=== PATIENT | female | born 1980 | race Caucasian/White ===

== ENCOUNTER 2017-05-28 13:48 | Emergency (ER) | payer OTHER ==
[2017-05-28] MEDS ORDERED: diphenhydrAMINE 50 MG/ML SDV IM ONE (14:09)
[2017-05-28] MEDS ORDERED: Ondansetron 4 MG Tab.DIS PO ONE (14:09)
--- NOTE | 2017-05-28 14:16 | EDM.PDOC ---
ED HPI GENERAL MEDICAL PROBLEM - General Chief Complaint: General Stated Complaint: HIGH FEVER,THROWING UP Time Seen by Provider: 05/28/17 13:59 - History of Present Illness INITIAL COMMENTS - FREE TEXT/NARRATIVE: HISTORY AND PHYSICAL: History of present illness: The patient is a 36-year-old female with no pre-existing medical problems who presents with a history of her roommate having flulike symptoms after receiving the flu vaccine and she is concerned that she has the flu now. The patient says she has had a normal day yesterday but felt somewhat run down and when she woke this morning she felt very dizzy not lightheaded and she did not pass out or black out. She felt like the room was spinning and she has a history of motion sickness and he felt like that. She has been nauseated with different movements of her head and it feels worse when she sits up and better when she lays down. Patient has not vomited or had diarrhea but she has had the nausea. She has some sinus congestion today but that is new and she thought it was secondary to crying earlier today. She has no sore throat cough chest pain or shortness of breath and no abdominal pain. The patient also states that because of the nausea she has not had much to eat or drink today Review of systems: As per history of present illness and below otherwise all systems reviewed and negative. Past medical history: As per history of present illness and as reviewed below otherwise noncontributory. Surgical history: As per history of present illness and as reviewed below otherwise noncontributory. Social history: No reported history of drug or alcohol abuse. Family history: As per history of present illness and as reviewed below otherwise noncontributory. Physical exam: Gen.: Well-developed well-nourished female who is nontoxic and is able to move in the ED without distress. Vital signs of the note by me. HEENT: Atraumatic, normocephalic, pupils reactive, negative for conjunctival pallor or scleral icterus, mucous membranes moist, throat clear, neck supple, nontender, trachea midline. EOMs are intact, there is some nystagmus with a slight fast component to the right and the patient has some symptomatology with that movement of her eyes to the right. There is no discrete sinus tenderness but the patient feels pressure with palpation of the frontal maxillary sinuses, the turbinates are somewhat boggy bilaterally, there is no cervical adenopathy or nuchal rigidity. TMs are dulled bilaterally Lungs: Clear to auscultation, breath sounds equal bilaterally, chest nontender. Heart: S1S2, regular rate and rhythm no overt murmurs Abdomen: Soft, nondistended, nontender. NABS. Pelvis: Deferred Genitourinary: Deferred. Rectal: Deferred. Extremities: Atraumatic, negative for cords or calf pain. Neurovascular unremarkable. Neuro: Awake, alert, oriented. Cranial nerves II through XII unremarkable. Cerebellum unremarkable. Motor and sensory unremarkable throughout. Exam nonfocal. Diagnostics: [] Therapeutics: Benadryl IM, Zofran I discussed with the patient that I could do influenza testing but that her symptom rheumatology seemed more like an inner ear disturbance possibly from some early sinusitis rather than the flu. She defers testing at this time and says she has a clinic provider at [facility], Dr. Bosch, she can follow- up with. I told her we can treat the symptomatology with Zofran and Benadryl as well as Antivert for home and see if her symptoms improve or even involve. She is understanding her reasons to return to the ED. Told her to push hydration and to rest Impression: Acute dizziness with nausea rule out inner ear disturbance Definitive disposition and diagnosis as appropriate pending reevaluation and review of above. head Pain Score (Numeric/FACES): 5 - Related Data Allergies Allergy/AdvReac Type Severity Reaction Status Date / Time allergy nasal spray Allergy Facial Uncoded 05/28/17 13:59 Swelling Home Meds: Home Meds . 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 ED EXAM, GENERAL - Physical Exam Exam: See Below (See dictation) Course - Vital Signs Last Recorded V/S: Last Vital Signs Temp 36.4 C 05/28/17 13:48 Pulse 66 05/28/17 13:48 Resp 18 05/28/17 13:48 BP 130/74 05/28/17 13:48 Pulse Ox 97 05/28/17 13:48 - Orders/Labs/Meds Orders: Active Orders 24 hr Category Date Time Status Ondansetron [Zofran ODT] Med 05/28/17 14:09 Once 4 mg PO ONETIME ONE diphenhydrAMINE [Benadryl] Med 05/28/17 14:09 Once 50 mg IM ONETIME ONE Departure - Departure Time of Disposition: 14:14 Disposition: Home, Self-Care 01 Condition: Good Clinical Impression: Dizziness, Nausea Inner ear dysfunction Qualifiers: Laterality: unspecified laterality Qualified Code(s): H83.90 - Unspecified disease of inner ear, unspecified ear - Discharge Information Referrals: PCP,None [Primary Care Provider] - Additional Instructions: The following information is given to patients seen in the emergency department who are being discharged to home. This information is to outline your options for follow-up care. We provide all patients seen in our emergency department with a follow-up referral. The need for follow-up, as well as the timing and circumstances, are variable depending upon the specifics of your emergency department visit. If you don't have a primary care physician on staff, we will provide you with a referral. We always advise you to contact your personal physician following an emergency department visit to inform them of the circumstance of the visit and for follow-up with them and/or the need for any referrals to a consulting specialist. The emergency department will also refer you to a specialist when appropriate. This referral assures that you have the opportunity for followup care with a specialist. All of these measure are taken in an effort to provide you with optimal care, which includes your followup. Under all circumstances we always encourage you to contact your private physician who remains a resource for coordinating your care. When calling for followup care, please make the office aware that this follow-up is from your recent emergency room visit. If for any reason you are refused follow-up, please contact the [facility] emergency department at and ask to speak to the emergency department charge nurse. [address] [place] [address] Please push hydration and rest and contact Dr. Bosch at [facility] to be seen early next week for reevaluation and further care. Return to ER as needed and as discussed. These use Zofran you have been prescribed for any nausea and vomiting and also use the Antivert for dizziness. Also take Benadryl 50 mg every 6 hours for the next 24 hours and do not take and drive a car or leave the house. You can then use the Benadryl every 6 hours as needed for dizziness. Please also add [id number] Claritin or Lottie daily for the next 10 days as this may be a potential sinus issue that is starting to develop. - My Orders Last 24 Hours: My Active Orders 05/28/17 14:09 Ondansetron [Zofran ODT] 4 mg PO ONETIME ONE diphenhydrAMINE [Benadryl] 50 mg IM ONETIME ONE - Assessment/Plan Last 24 Hours: My Active Orders 05/28/17 14:09 Ondansetron [Zofran ODT] 4 mg PO ONETIME ONE diphenhydrAMINE [Benadryl] 50 mg IM ONETIME ONE
[2017-05-28 14:27] VITALS: BP 137/87
== END 2017-05-28 14:40 | disposition home or self-care (01) ==
LOC: MW.ED 13:48
DX: R42 Dizziness and giddiness (principal); R11.0 Nausea; H83.90 Unspecified disease of inner ear, unspecified ear
CPT/HCPCS: 96372; 99283; A9270; J1200

== ENCOUNTER 2019-01-01 10:31 | Emergency (ER) | payer OTHER ==
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
== END 2019-01-01 11:00 | disposition home or self-care (01) ==
LOC: MW.ED 10:31
DX: T30.0 Burn of unspecified body region, unspecified degree (principal); Z91.09 Other allergy status, other than to drugs and biological substances
CPT/HCPCS: 99282